=== PATIENT | female | born 1980 | race Caucasian/White ===

== ENCOUNTER → 2017-05-19 | Day surgery (SDC) | payer OTHER ==
[2017-04-26 08:25] VITALS: Ht 162.6 cm; Wt 58.2 kg
[~2017-05-19] VITALS: Ht 162.6 cm; Wt 58.2 kg
[~2017-05-19] MED LIST: ALBU18002 INH; ATROPINE SULFATE 0.1 MG/ML 5ML SYR IV PRN; CABE0.5T PO; CYCL5TAB PO; CYM/30 PO; DICY10CA12 PO; EpHEDrine SULFATE INJ 50 MG/ML AMP IV PRN; HYDR-4380 PO; LIDOCAINE HCL 2% 2 ML VIAL (20MG/ML) ONE; LORA-741 PO; MIDAZOLAM HCL 1 MG/ML 2ML VIAL ONE; ONDA4TAB54 SL; ONDANSETRON INJ 2 MG/ML 2 ML VIAL ONE; PANT40TA PO; PROPOFOL IV EMULSION 10 MG/ML 20 ML VIAL IV ONE
[2017-05-19 12:54] VITALS: TEMP 36.9
--- NOTE | 2017-05-19 13:06 | Endo History and Physical ---
History & Physical Date of Service: May 19, 2017. Chief Complaint: ABD pain, Alternating Constipation and Diarrhea Referring Physician: Scooby History of Present Illness 37 yo CF who presents for Colonoscopy secondary to abdominal pain and change in bowel habits. Past Surgical History Hx Cardiac Surgery: No Hx Internal Defibrillator: No Hx Pacemaker: No Hx Abdominal Surgery: Yes (TUBAL LIGATION, UTERINE ABLATION, BLT INGUINAL HERNIA REPAIR) Hx of Implantable Prosthesis: No Hx Post-Op Nausea and Vomiting: No Hx Cancer Surgery: No Hx Thoracic Surgery: No Hx Orthopedic: No Hx Urinary Tract Surgery: No Family History Polyp, IBD Social History Smoking Status: Current Every Day Smoker Hx Substance Use: No Hx Alcohol Use: Yes (OCCASIONAL) Allergies Coded Allergies: Latex (Verified Allergy, Unknown, HIVES, RASH, AND SWELLING, 05/12/17) NO KNOWN DRUG ALLERGIES (Verified Allergy, Unknown, ., 05/12/17) Current Medications Reported Home Medications Medications Dose Route/Sig Max Daily Dose Days Date Category Dose Instructions Hydrocodone/Acetaminophen (Hydrocodone-Acetaminophen) 1 Tab Tab 1 Tab PO Q4H PRN 05/12/17 Reported Protonix (Pantoprazole Sodium) 40 Mg Tab 40 Mg PO QAM 05/12/17 Reported Proair Respiclick (Albuterol Sulfate) 108 Mcg/Act Aer 2 Puffs INH Q4H PRN 04/26/17 Reported Ondansetron HCl (Ondansetron) 4 Mg Tab 1 Tab SL BID PRN 04/26/17 Reported Ativan (Lorazepam) 0.5 Mg Tab 0.5 Mg PO TID PRN 04/26/17 Reported Dicyclomine Hcl 10 Mg Cap 1 Cap PO TID PRN 04/26/17 Reported Cymbalta (Duloxetine HCl) 30 Mg Cap 1 Cap PO HS 04/26/17 Reported Flexeril (Cyclobenzaprine Hcl) 5 Mg Tab 5 Mg PO TID PRN 04/26/17 Reported PRN Cabergoline 0.5 Mg Tab 1 Tab PO WK 04/26/17 Reported WED Vital Signs Weight (Kilograms): 58.18 Height (Feet): 5 Height (Inches): 4 Date Time Temp Pulse Resp B/P (MAP) Pulse Ox O2 Delivery O2 Flow Rate FiO2 05/19/17 12:54 36.9 65 18 117/80 (92) 99 Room Air Physical Exam General Appearance: WD/WN, no apparent distress Respiratory/Chest: Auscultation: breath sounds normal Cardiovascular: Heart Auscultation: RRR Abdomen: Bowel Sounds: normal Inspection & Palpation: soft, non-distended, no tenderness, guarding & rebound Assessment and Plan Assessment: 37 yo CF who presents for Colonoscopy secondary to abdominal pain and change in bowel habits. Plan: Proceed with colonoscopy.
--- NOTE | 2017-05-19 13:43 | Discharge Instructions ---
Endoscopy Patient Instructions Date / Procedure(s) Performed May 19, 2017. Colonoscopy Allergy Information Coded Allergies: Latex (Verified Allergy, Unknown, HIVES, RASH, AND SWELLING, 05/12/17) NO KNOWN DRUG ALLERGIES (Verified Allergy, Unknown, ., 05/12/17) Discharge Date / Findings May 19, 2017. Colon polyps Internal hemorrhoids Medication Instructions OK to resume all medications today as prescribed Reported Home Medications Medications Dose Route/Sig Max Daily Dose Days Date Category Dose Instructions Hydrocodone/Acetaminophen (Hydrocodone-Acetaminophen) 1 Tab Tab 1 Tab PO Q4H PRN 05/12/17 Reported Protonix (Pantoprazole Sodium) 40 Mg Tab 40 Mg PO QAM 05/12/17 Reported Proair Respiclick (Albuterol Sulfate) 108 Mcg/Act Aer 2 Puffs INH Q4H PRN 04/26/17 Reported Ondansetron HCl (Ondansetron) 4 Mg Tab 1 Tab SL BID PRN 04/26/17 Reported Ativan (Lorazepam) 0.5 Mg Tab 0.5 Mg PO TID PRN 04/26/17 Reported Dicyclomine Hcl 10 Mg Cap 1 Cap PO TID PRN 04/26/17 Reported Cymbalta (Duloxetine HCl) 30 Mg Cap 1 Cap PO HS 04/26/17 Reported Flexeril (Cyclobenzaprine Hcl) 5 Mg Tab 5 Mg PO TID PRN 04/26/17 Reported PRN Cabergoline 0.5 Mg Tab 1 Tab PO WK 04/26/17 Reported WED Provider Instructions Activity Restrictions - No exercising or heavy lifting for 24 hours. - Do not drink alcohol the day of the procedure. - Do not drive a car or operate machinery until the day after the procedure. - Do not make any important decisions or sign important papers in 24 hours after the procedure. Following Day: - Return to full activity which may include returning to work/school. Diet Start your diet with liquids and light foods (jello, soup, juice, toast). Then eat your usual diet if not nauseated. Treatment For Common After Affects For mild abdominal pain, bloating, or excessive gas: - Rest - Eat lightly - Lie on right side Follow-Up Information Follow-up with Scooby as scheduled Anesthesia Information What You Should Know You have had a procedure that required some medicine to reduce anxiety and discomfort. This treatment is called moderate sedation. After receiving the treatment, you may be sleepy, but you will be able to breathe on your own. The effects of the treatment may last for several hours. Follow these instructions along with Activity/Diet recommendations noted above: * Do NOT do anything where dizziness or clumsiness would be dangerous. * Rest quietly at home today, then you can be up and about tomorrow. * Have a responsible person stay with you the rest of today. * You may have had an I.V. today. If so, you may take the dressing off later today. Recommendations Call your doctor if: * Trouble breathing * Continuous vomiting for more than 24 hours * Temperature above 101 degrees * Severe abdominal pain or bloating * Pain not relieved by pain medicine ordered * There is increased drainage or redness from any incision * A large amount of rectal bleeding greater than 2-3 tablespoons. (If you had a polyp/s removed or have hemorrhoids, a small amount of blood - from the rectum is to be expected.) * You have any unanswered questions or concerns. IN THE EVENT OF A SERIOUS EMERGENCY, GO TO THE NEAREST EMERGENCY ROOM Your discharge instructions were prepared by provider Jun Torres. Patient Instructions Signature Page Hannah Davis Patient (or Guardian) Signature/Date: I have read and understand the instructions given to me by my caregivers. Caregiver/RN/Doctor Signature/Date: The above-named patient and/or guardian has received patient instructions on this date. + Original Patient Signature Page (only) stays with chart. Please make copy for patient.
--- NOTE | 2017-05-19 13:45 | Anesthesiology Progress Note ---
Anesthesia Post Op Note Date & Time May 19, 2017 at 13:44 Vital Signs Pain Intensity: 4 Vital Signs Past 12 Hours Date Time Temp Pulse Resp B/P (MAP) Pulse Ox O2 Delivery O2 Flow Rate FiO2 05/19/17 12:54 36.9 65 18 117/80 (92) 99 Room Air Notes Mental Status: alert / awake / arousable, participated in evaluation Pt Amnestic to Procedure: Yes Nausea / Vomiting: adequately controlled Pain: adequately controlled Airway Patency, RR, SpO2: stable & adequate BP & HR: stable & adequate Hydration State: stable & adequate Anesthetic Complications: no major complications apparent
[2017-05-19 14:11] VITALS: BP 130/80; PULSE 58; O2SAT 100
--- NOTE | 2017-05-20 00:24 | GI REPORT ---
Procedure Date: 05/19/2017 12:53 PM Procedure: Colonoscopy Indications: Generalized abdominal pain, Change in bowel habits Medicines: Monitored Anesthesia Care Complications: No immediate complications. Estimated Blood Loss: Estimated blood loss: none. Procedure: Pre-Anesthesia Assessment: - Prior to the procedure, a History and Physical was performed, and patient medications and allergies were reviewed. The patient's tolerance of previous anesthesia was also reviewed. The risks and benefits of the procedure and the sedation options and risks were discussed with the patient. All questions were answered, and informed consent was obtained. Prior Anticoagulants: The patient has taken no previous anticoagulant or antiplatelet agents. ASA Grade Assessment: II - A patient with mild systemic disease. After reviewing the risks and benefits, the patient was deemed in satisfactory condition to undergo the procedure. After I obtained informed consent, the scope was passed under direct vision. Throughout the procedure, the patient's blood pressure, pulse, and oxygen saturations were monitored continuously. The scope was introduced through the anus and advanced to the terminal ileum. The colonoscopy was performed without difficulty. The patient tolerated the procedure well. The quality of the bowel preparation was good. The terminal ileum, ileocecal valve, appendiceal orifice, and rectum were photographed. Findings: A 3 mm polyp was found in the ascending colon. The polyp was sessile. The polyp was removed with a cold snare. Resection and retrieval were complete. A 15 mm polyp was found in the ascending colon. The polyp was flat. The polyp was removed with a saline injection-lift technique using a hot snare. Resection and retrieval were complete. A 4 mm polyp was found in the sigmoid colon. The polyp was sessile. The polyp was removed with a cold snare. Resection was complete, but the polyp tissue was not retrieved. Non-bleeding internal hemorrhoids were found during retroflexion. The hemorrhoids were small. Impression: - One 3 mm polyp in the ascending colon, removed with a cold snare. Resected and retrieved. - One 15 mm polyp in the ascending colon, removed using injection-lift and a hot snare. Resected and retrieved. - One 4 mm polyp in the sigmoid colon, removed with a cold snare. Complete resection. Polyp tissue not retrieved. - Non-bleeding internal hemorrhoids. Recommendation: - Resume previous diet. - Continue present medications. - Repeat colonoscopy for surveillance based on pathology results. - Return to primary care physician as previously scheduled. Jun Torres DO 05/19/2017 1:46:58 PM This report has been signed electronically. Note Initiated On: 05/19/2017 12:53 PM I attest to the content of the Intraoperative Record and orders documented therein, exceptions below
== END | disposition home or self-care (01) ==
LOC: C.GI 12:24
PROVIDERS: ATTEND Internal Medicine
DX: D12.2 Benign neoplasm of ascending colon (principal); K63.5 Polyp of colon; R10.84 Generalized abdominal pain; R19.4 Change in bowel habit; K64.8 Other hemorrhoids

== ENCOUNTER → 2017-06-01 | Day surgery (SDC) | payer OTHER ==
[2017-05-12 07:39] VITALS: Ht 162.6 cm; Wt 59.5 kg
[~2017-06-01] VITALS: Ht 162.6 cm; Wt 59.5 kg
[~2017-06-01] MED LIST changes: +500ML BSS 0.3ML EPI 1:1000PF IRRIG ONE; +ACETAMINOPHEN 325 MG TAB PO PRN; +AMVISC PLUS 0.8ML SYRINGE INT OCU ONE; +BSS FLUSH ONE; +ENDOCOAT 0.85ML SYRINGE INT OCU ONE; +EpINEphrine INJ 1MG/ML AMP 1 MG/ML AMP ONE; +FENTANYL CITRATE INJ 50 MCG/1 ML 2 ML VIAL ONE; +LIDOCAINE 4% OP SOLN DROP CHARGE ONE; +LIDOCAINE 4% OP SOLN DROP CHARGE OPR SCH; +LIDOCAINE HCL 1% MPF 2 ML VIAL ONE; +MIX: 4ML BSS 1ML EPI 1:1000 PF TOP ONE; +MOXIFLOXACIN OPH SOLN PER DROP CHARGE ONE; +ONDANSETRON INJ 2 MG/ML 2 ML VIAL IV PRN; +POVIDONE-IODINE OP SOLN 30 ML BTL ONE; +PROMETHAZINE HCL INJ 12.5 MG in SODIUM CHLORIDE 0.9% 50ML 50 ML IV PRN; +PROPARACAINE 0.5% OP SOLN PER DROP CHARGE OPR SCH; +TOBRAMYCIN/DEXAMETHASONE OPH OINT PER APPLN CHARGE ONE
[2017-06-01] MEDS: PHENYLEPHRINE HCL 2.5% OP SOLN PER DROP CHARGE OPR SCH ×3 (11:27→11:38)
[2017-06-01] MEDS: TROPICAMIDE 1% OP SOLN PER DROP CHARGE OPR SCH ×3 (11:28→11:39)
[2017-06-01] MEDS: CYCLOPENTOLATE HCL 1% OP SOLN PER DROP CHARGE OPR SCH ×3 (11:29→11:40)
[2017-06-01] MEDS: MOXIFLOXACIN OPH SOLN PER DROP CHARGE OPR SCH ×3 (11:30→11:41)
--- NOTE | 2017-06-01 11:35 | History & Physical Bridge - SC ---
H&P Re-Evaluation Bridge Note: I have examined the patient, reviewed the History & Physical and in the interval since the performance of the History & Physical I have noted the following changes of clinical significance: No changes noted
[2017-06-01] MEDS: LACTATED RINGER'S 1000ML 500 ML IV SCH ×2 (11:46→13:26)
--- NOTE | 2017-06-01 12:52 | [facility] Post Operative Brief Note ---
Immediate Operative Summary Operative Date Jun 01, 2017. Pre-Operative Diagnosis Right eye cataract Post-Operative Diagnosis Same as preop Procedure(s) Performed Right Cataract Phacoemulsification with Intraocular Lens Implant Surgeon Dr. Escalante Plastics Fabricator Or Welder Surgeon(s) None Estimated Blood Loss 0 mL Findings right cataract Specimens None Complication(s) None Disposition Recovery Room / PACU
--- NOTE | 2017-06-01 12:54 | [facility] Operative Report ---
Operative Report Date of Service Jun 01, 2017. Operative Report DATE OF OPERATION: 06/01/17 PREOPERATIVE DIAGNOSIS: Senile nuclear and posterior subcapsular cataract, right eye POSTOPERATIVE DIAGNOSIS: Senile nuclear and posterior subcapsular cataract, right eye PROCEDURE PERFORMED: Phacoemulsification with intraocular lens implantation, right eye SURGEON: Dr. Cas Escalante ANESTHESIA: Topical with 1% intracameral lidocaine and monitored anesthesia care COMPLICATIONS: None DESCRIPTION OF PROCEDURE: After positively identifying the patient both verbally and by wristband in the preoperative area, the right eye was marked as the operative eye. The patient was then brought back to the operating room by the anesthesia and nursing staff where they were given a drop of Lidocaine and betadine into the operative eye. They were then sterilely prepped and draped in the standard fashion typical for ophthalmic surgery. Steri-strips were placed along the upper eyelids to keep the lashes back, and a lid speculum was placed into the operative eye. At this point, a documented time out was performed with members of the ophthalmology, nursing, and anesthesia staffs all agreeing upon the correct patient, correct location for surgery, correct procedure, and correct type and power of intraocular lens to be implanted. The microscope was then swung into position. First, a paracentesis wound was made using a sideport blade. Then, in sequence, 1% preservative-free lidocaine followed by Endocoat viscoelastic was injected into the anterior chamber. Next , the main incision was made with a keratome blade in triplanar fashion. A sharp cystotome was introduced into the eye and used to create a tear in the anterior capsule, which was directed into a continuous curvilinear capsulorrhexis using Utrata forceps. Hydrodissection was then performed with BSS on a flat-tip cannula. Next, the irrigation-aspiration handpiece was introduced into the eye and used to remove the nucleus and all remaining cortical and epinuclear material. Amvisc was then injected into the anterior chamber as well as into the capsular bag and using the lens injector system, an MX60 19.0 D lens, serial number [id number], and expiration date 01/2020 was injected into the capsular bag and rotated into the correct position. Next, the irrigation-aspiration handpiece was used to remove all remaining Amvisc. BSS was used to hydrate the main wound, and then BSS was injected into the paracentesis site to reach physiologic pressure and then the main wound was checked and found to be watertight. The patient was given drops of Vigamox and Tobradex ointment into the operative eye, and then the surrounding area was cleaned and dried. A clear plastic shield was placed over the eye and the patient was then sat up and taken from the operating room by the anesthesia staff having tolerated the procedure well and suffering no complications. DISPOSITION: The patient was returned to the recovery room in stable condition. I attest to the content of the Intraoperative Record and any orders documented therein. Any exceptions are noted below.
--- NOTE | 2017-06-01 12:55 | Discharge Instructions-SurgCtr ---
Discharge Instructions Date of Service Jun 01, 2017. Visit Reason for Visit: Right Cataract Discharge Discharge Diagnosis / Problem: right cataract Discharge Goals Goal(s): Decrease discomfort, Improve function Activity Recommendations Activity Limitations: as noted below Anesthesia . Post Anesthesia Instructions: If you have had General Anesthesia or IV Sedation: * Do not drive today. * Resume driving when surgeon permits. * Do not make important decisions or sign legal documents today. * Call surgeon for: 1. Temperature elevations greater than 101 degrees F. 2. Uncontrollable pain. 3. Excessive bleeding. 4. Persistent nausea and vomiting. 5. Medication intolerance (nausea, vomiting or rash). * For nausea and vomiting use only clear liquids such as: tea, soda, bouillon until nausea subsides, then gradually increase diet as tolerated. * If you have any concerns or questions, call your surgeon's office. If physician is unavailable and it is an emergency, call 911 or go to the nearest emergency room. . Instructions / Follow-Up Instructions / Follow-Up ACTIVITY RECOMMENDATIONS: * Light activities. * You may walk outside, read, watch television. * You may notice redness on the white part of the eye and some blurry vision - this is normal. MEDICATIONS: Resume previous medications unless instructed otherwise by your surgeon. Start all eye drops at 3 pm today: * Eye drops (today): Prednisone - one drop in operative eye every 2 hours while awake Ofloxacin - one drop in operative eye every 2 hours while awake Bromfenac - one drop in operative eye daily SPECIAL CARE INSTRUCTIONS: * Tape plastic shield over eye to sleep at night. Call your doctor at with any concerns or problems. FOLLOW UP VISIT: Follow-up with Dr Escalante at [facility] as scheduled. Diet Recommendations Home Diet: no limitations Procedures Procedures Performed: Right Cataract Phacoemulsification with Intraocular Lens Implant Pending Studies Studies pending at discharge: no Medical Emergencies . Who to Call and When: Medical Emergencies: If at any time you feel your situation is an emergency, please call 911 immediately. . Non-Emergent Contact Non-Emergency issues call your: Surgeon . . "Provider Documentation" section prepared by Cas Escalante. .
[2017-06-01 13:57] VITALS: BP 128/83; PULSE 63; O2SAT 100
--- NOTE | 2017-06-01 13:57 | Anesthesia Progress Nt - [facility] ---
Anesthesia Post Op Note Date & Time Jun 01, 2017 at 13:57 Vital Signs Pain Intensity: 0 Vital Signs Past 12 Hours Date Time Temp Pulse Resp B/P (MAP) Pulse Ox O2 Delivery O2 Flow Rate FiO2 06/01/17 13:34 36.5 69 16 118/79 (92) 100 Room Air 06/01/17 13:31 63 17 123/80 (88) 100 06/01/17 13:31 62 17 06/01/17 13:26 66 13 06/01/17 13:26 67 13 106/74 (76) 100 06/01/17 13:25 Room Air 06/01/17 13:21 63 16 06/01/17 13:21 66 16 137/75 (81) 100 06/01/17 13:16 68 19 06/01/17 13:16 64 19 114/81 (84) 100 06/01/17 13:12 120/73 (78) 06/01/17 13:11 75 23 06/01/17 13:11 75 23 100 06/01/17 13:06 66 15 108/76 (83) 100 06/01/17 13:06 68 15 06/01/17 13:01 70 13 125/68 (74) 100 06/01/17 13:01 70 13 06/01/17 12:56 76 06/01/17 12:56 76 104/74 (85) 100 06/01/17 12:55 98/66 (72) 06/01/17 12:51 36.6 73 16 98/66 98 Diffusion Mask 3 06/01/17 11:18 36.4 80 16 112/69 (83) 100 Room Air Notes Mental Status: alert / awake / arousable, participated in evaluation Pt Amnestic to Procedure: Yes Nausea / Vomiting: adequately controlled Pain: adequately controlled Airway Patency, RR, SpO2: stable & adequate BP & HR: stable & adequate Hydration State: stable & adequate Anesthetic Complications: no major complications apparent
== END | disposition home or self-care (01) ==
LOC: X.SURG 10:50
PROVIDERS: ATTEND Ophthalmology
DX: H25.11 Age-related nuclear cataract, right eye (principal); H25.041 Posterior subcapsular polar age-related cataract, right eye; I34.1 Nonrheumatic mitral (valve) prolapse; J45.909 Unspecified asthma, uncomplicated; F41.9 Anxiety disorder, unspecified; F32.9 Major depressive disorder, single episode, unspecified; F17.200 Nicotine dependence, unspecified, uncomplicated; Z79.899 Other long term (current) drug therapy

== ENCOUNTER → 2017-06-15 | Day surgery (SDC) | payer OTHER ==
[2017-06-14 08:25] VITALS: Ht 162.6 cm; Wt 59.5 kg
[~2017-06-15] VITALS: Ht 162.6 cm; Wt 59.5 kg
[~2017-06-15] MED LIST changes: +AcetylCHOLine CHL OP SOL 1:100 2 ML BTL ONE; +FLUMAZENIL 0.1 MG/1 ML 10 ML VIAL IV PRN; +LACTATED RINGER'S 1000ML 500 ML IV SCH; +LIDOCAINE 4% OP SOLN DROP CHARGE OPL SCH; -LIDOCAINE 4% OP SOLN DROP CHARGE OPR SCH; -LIDOCAINE HCL 2% 2 ML VIAL (20MG/ML) ONE; -MIDAZOLAM HCL 1 MG/ML 2ML VIAL ONE; +NALOXONE HCL 0.4 MG/1 ML VIAL/CARP IV PRN; +PROPARACAINE 0.5% OP SOLN PER DROP CHARGE OPL SCH; -PROPARACAINE 0.5% OP SOLN PER DROP CHARGE OPR SCH
[2017-06-15] MEDS: PHENYLEPHRINE HCL 2.5% OP SOLN PER DROP CHARGE OPL SCH ×3 (12:21→12:32)
[2017-06-15] MEDS: TROPICAMIDE 1% OP SOLN PER DROP CHARGE OPL SCH ×3 (12:22→12:33)
[2017-06-15] MEDS: CYCLOPENTOLATE HCL 1% OP SOLN PER DROP CHARGE OPL SCH ×3 (12:23→12:34)
[2017-06-15] MEDS: MOXIFLOXACIN OPH SOLN PER DROP CHARGE OPL SCH ×3 (12:24→12:35)
--- NOTE | 2017-06-15 13:59 | [facility] Post Operative Brief Note ---
Immediate Operative Summary Operative Date Jun 15, 2017. Pre-Operative Diagnosis Cataract left eye Post-Operative Diagnosis Same Procedure(s) Performed Left Cataract Phacoemulsification With Intraocular Lens Implant Surgeon Block Feeder Surgeon(s) None Estimated Blood Loss Zero Findings left cataract Specimens None Complication(s) None Disposition
--- NOTE | 2017-06-15 14:01 | [facility] Operative Report ---
Operative Report Date of Service Jun 15, 2017. Operative Report DATE OF OPERATION: 06/15/17 PREOPERATIVE DIAGNOSIS: Senile nuclear cataract, left eye POSTOPERATIVE DIAGNOSIS: Senile nuclear cataract, left eye PROCEDURE PERFORMED: Phacoemulsification with intraocular lens implantation, left eye SURGEON: Dr. Cas Escalante ANESTHESIA: LMA general COMPLICATIONS: None DESCRIPTION OF PROCEDURE: After positively identifying the patient both verbally and by wristband in the preoperative area, the left eye was marked as the operative eye. The patient was then brought back to the operating room by the anesthesia and nursing staff where LMA general anesthesia was induced. The patient was then given a drop of Lidocaine and betadine into the operative eye. They were then sterilely prepped and draped in the standard fashion typical for ophthalmic surgery. Steri-strips were placed along the upper eyelids to keep the lashes back, and a lid speculum was placed into the operative eye. At this point, a documented time out was performed with members of the ophthalmology, nursing, and anesthesia staffs all agreeing upon the correct patient, correct location for surgery, correct procedure, and correct type and power of intraocular lens to be implanted. The microscope was then swung into position. First, a paracentesis wound was made using a sideport blade. Then, in sequence, 1% preservative-free lidocaine followed by Endocoat viscoelastic was injected into the anterior chamber. Next , the main incision was made with a keratome blade in triplanar fashion. A sharp cystotome was introduced into the eye and used to create a tear in the anterior capsule, which was directed into a continuous curvilinear capsulorrhexis using Utrata forceps. Hydrodissection was then performed with BSS on a flat-tip cannula. Next, the irrigation-aspiration handpiece was introduced into the eye and used to remove the soft nucleus and all remaining possible and epinuclear material. Amvisc was then injected into the anterior chamber as well as into the capsular bag and using the lens injector system, an MX60 17.0 D lens, serial number [id number], and expiration date 12/2019 was injected into the capsular bag and rotated into the correct position. Next, the irrigation-aspiration handpiece was used to remove all remaining Amvisc. BSS was used to hydrate the main wound, and then BSS was injected into the paracentesis site to reach physiologic pressure and then the main wound was checked and found to be watertight. Miochol was injected. The patient was given drops of Vigamox and Tobradex ointment into the operative eye, and then the surrounding area was cleaned and dried. A clear plastic shield was placed over the eye and the patient was then sat up and taken from the operating room by the anesthesia staff having tolerated the procedure well and suffering no complications. DISPOSITION: The patient was returned to the recovery room in stable condition. I attest to the content of the Intraoperative Record and any orders documented therein. Any exceptions are noted below.
--- NOTE | 2017-06-15 14:03 | Discharge Instructions-SurgCtr ---
Discharge Instructions Date of Service Jun 15, 2017. Visit Reason for Visit: Left Cataract Discharge Discharge Diagnosis / Problem: left cataract Discharge Goals Goal(s): Decrease discomfort, Improve function Activity Recommendations Activity Limitations: as noted below Anesthesia . Post Anesthesia Instructions: If you have had General Anesthesia or IV Sedation: * Do not drive today. * Resume driving when surgeon permits. * Do not make important decisions or sign legal documents today. * Call surgeon for: 1. Temperature elevations greater than 101 degrees F. 2. Uncontrollable pain. 3. Excessive bleeding. 4. Persistent nausea and vomiting. 5. Medication intolerance (nausea, vomiting or rash). * For nausea and vomiting use only clear liquids such as: tea, soda, bouillon until nausea subsides, then gradually increase diet as tolerated. * If you have any concerns or questions, call your surgeon's office. If physician is unavailable and it is an emergency, call 911 or go to the nearest emergency room. . Instructions / Follow-Up Instructions / Follow-Up ACTIVITY RECOMMENDATIONS: * Light activities. * You may walk outside, read, watch television. * You may notice redness on the white part of the eye and some blurry vision - this is normal. MEDICATIONS: Resume previous medications unless instructed otherwise by your surgeon. Start all eye drops at 4 pm today: * Eye drops (today): Prednisone - one drop in operative eye every 2 hours while awake Ofloxacin - one drop in operative eye every 2 hours while awake Bromfenac - one drop in operative eye daily SPECIAL CARE INSTRUCTIONS: * Tape plastic shield over eye to sleep at night. Call your doctor at with any concerns or problems. FOLLOW UP VISIT: Follow-up with Dr Escalante at [place] office as scheduled. Diet Recommendations Home Diet: no limitations Procedures Procedures Performed: Left Cataract Phacoemulsification With Intraocular Lens Implant Pending Studies Studies pending at discharge: no Medical Emergencies . Who to Call and When: Medical Emergencies: If at any time you feel your situation is an emergency, please call 911 immediately. . Non-Emergent Contact Non-Emergency issues call your: Surgeon . . "Provider Documentation" section prepared by Cas Escalante. .
--- NOTE | 2017-06-15 14:58 | Anesthesia Progress Nt - [facility] ---
Anesthesia Post Op Note Date & Time Jun 15, 2017 at 14:57 Vital Signs Pain Intensity: 0 Vital Signs Past 12 Hours Date Time Temp Pulse Resp B/P (MAP) Pulse Ox O2 Delivery O2 Flow Rate FiO2 06/15/17 14:41 36.5 06/15/17 14:37 66 16 132/82 99 Room Air 06/15/17 14:01 36.3 68 18 134/89 100 Nasal Cannula 3 06/15/17 12:17 36.7 83 16 125/76 (92) 100 Room Air Notes Mental Status: alert / awake / arousable, participated in evaluation Pt Amnestic to Procedure: Yes Nausea / Vomiting: adequately controlled Pain: adequately controlled Airway Patency, RR, SpO2: stable & adequate BP & HR: stable & adequate Hydration State: stable & adequate Anesthetic Complications: no major complications apparent
[2017-06-15 15:09] VITALS: BP 121/88; PULSE 73; O2SAT 99
== END | disposition home or self-care (01) ==
LOC: X.SURG 12:02
PROVIDERS: ATTEND Ophthalmology
DX: H25.12 Age-related nuclear cataract, left eye (principal); F32.9 Major depressive disorder, single episode, unspecified; F41.9 Anxiety disorder, unspecified; J45.909 Unspecified asthma, uncomplicated; Z98.51 Tubal ligation status; F17.200 Nicotine dependence, unspecified, uncomplicated; Z98.41 Cataract extraction status, right eye; Z91.040 Latex allergy status; Z79.899 Other long term (current) drug therapy; Z98.890 Other specified postprocedural states

== ENCOUNTER → 2017-08-26 | Day surgery (SDC) | payer OTHER ==
[2017-08-18 11:42] VITALS: Ht 160 cm; Wt 59.5 kg
[~2017-08-26] VITALS: Ht 160 cm; Wt 59.5 kg
[~2017-08-26] MED LIST changes: -500ML BSS 0.3ML EPI 1:1000PF IRRIG ONE; -ACETAMINOPHEN 325 MG TAB PO PRN; -AMVISC PLUS 0.8ML SYRINGE INT OCU ONE; -ATROPINE SULFATE 0.1 MG/ML 5ML SYR IV PRN; -AcetylCHOLine CHL OP SOL 1:100 2 ML BTL ONE; -BSS FLUSH ONE; -ENDOCOAT 0.85ML SYRINGE INT OCU ONE; -EpHEDrine SULFATE INJ 50 MG/ML AMP IV PRN; -EpINEphrine INJ 1MG/ML AMP 1 MG/ML AMP ONE; -FENTANYL CITRATE INJ 50 MCG/1 ML 2 ML VIAL ONE; -FLUMAZENIL 0.1 MG/1 ML 10 ML VIAL IV PRN; -LACTATED RINGER'S 1000ML 500 ML IV SCH; -LIDOCAINE 4% OP SOLN DROP CHARGE ONE; -LIDOCAINE 4% OP SOLN DROP CHARGE OPL SCH; -LIDOCAINE HCL 1% MPF 2 ML VIAL ONE; +LIDOCAINE HCL 2% 2 ML VIAL (20MG/ML) ONE; +MIDAZOLAM HCL 1 MG/ML 2ML VIAL ONE; -MIX: 4ML BSS 1ML EPI 1:1000 PF TOP ONE; -MOXIFLOXACIN OPH SOLN PER DROP CHARGE ONE; -NALOXONE HCL 0.4 MG/1 ML VIAL/CARP IV PRN; -ONDANSETRON INJ 2 MG/ML 2 ML VIAL IV PRN; -POVIDONE-IODINE OP SOLN 30 ML BTL ONE; -PROMETHAZINE HCL INJ 12.5 MG in SODIUM CHLORIDE 0.9% 50ML 50 ML IV PRN; -PROPARACAINE 0.5% OP SOLN PER DROP CHARGE OPL SCH; +SODIUM CHLORIDE 0.9% 500ML 500 ML IV ONE; -TOBRAMYCIN/DEXAMETHASONE OPH OINT PER APPLN CHARGE ONE
[2017-08-26 10:53] VITALS: TEMP 36.8
--- NOTE | 2017-08-26 12:19 | Endo History and Physical ---
History & Physical Date of Service: Aug 26, 2017. Chief Complaint: ESOPHAGITIS, DIFFICULTY SWALLOWING Referring Physician: DR. MARLA PRICE History of Present Illness 37 yo CF who presents for EGD secondary to esophagitis and dysphagia. Past Surgical History Hx Cardiac Surgery: No Hx Internal Defibrillator: No Hx Pacemaker: No Hx Abdominal Surgery: Yes (TUBAL LIGATION, UTERINE ABLATION, BLT INGUINAL HERNIA REPAIR) Hx of Implantable Prosthesis: No Hx Post-Op Nausea and Vomiting: No Hx Cancer Surgery: No Hx Thoracic Surgery: No Hx Orthopedic: No Hx Urinary Tract Surgery: No Family History Polyp, IBD Social History Smoking Status: Current Every Day Smoker Hx Substance Use: Yes (SEE MED LIST) Hx Alcohol Use: Yes (OCCASIONAL) Allergies Coded Allergies: Latex1 -Allergic Contact Dermititis (Verified Allergy, Unknown, RASH, HIVES, SWELLING, 08/18/17) NO KNOWN DRUG ALLERGIES (Verified Allergy, Unknown, ., 08/18/17) Current Medications Reported Home Medications Medications Dose Route/Sig Max Daily Dose Days Date Category Dose Instructions Hydrocodone/Acetaminophen (Hydrocodone-Acetaminophen) 1 Tab Tab 1 Tab PO Q4H PRN 05/12/17 Reported Protonix (Pantoprazole Sodium) 40 Mg Tab 40 Mg PO QAM 05/12/17 Reported Proair Respiclick (Albuterol Sulfate) 108 Mcg/Act Aer 2 Puffs INH Q4H PRN 04/26/17 Reported Ondansetron HCl (Ondansetron) 4 Mg Tab 1 Tab SL BID PRN 04/26/17 Reported Ativan (Lorazepam) 0.5 Mg Tab 0.5 Mg PO TID PRN 04/26/17 Reported Dicyclomine Hcl 10 Mg Cap 1 Cap PO TID PRN 04/26/17 Reported Cymbalta (Duloxetine HCl) 30 Mg Cap 30 Mg PO HS 04/26/17 Reported Flexeril (Cyclobenzaprine Hcl) 5 Mg Tab 5 Mg PO TID PRN 04/26/17 Reported PRN Cabergoline 0.5 Mg Tab 1 Tab PO WK 04/26/17 Reported WED Vital Signs Weight (Kilograms): 59.55 Height (Feet): 5 Height (Inches): 3 Date Time Temp Pulse Resp B/P (MAP) Pulse Ox O2 Delivery O2 Flow Rate FiO2 08/26/17 10:53 36.8 74 20 108/78 (88) 100 Room Air Physical Exam General Appearance: WD/WN, no apparent distress Respiratory/Chest: Auscultation: breath sounds normal Cardiovascular: Heart Auscultation: RRR Abdomen: Bowel Sounds: normal Inspection & Palpation: soft, non-distended, no tenderness, guarding & rebound Assessment and Plan Assessment: 37 yo CF who presents for EGD secondary to esophagitis and dysphagia. Plan: Proceed with colonoscopy.
--- NOTE | 2017-08-26 13:19 | GI REPORT ---
Procedure Date: 08/26/2017 1:00 PM Procedure: Upper GI endoscopy Indications: Dysphagia Medicines: Monitored Anesthesia Care Complications: No immediate complications. Estimated Blood Loss: Estimated blood loss: none. Procedure: Pre-Anesthesia Assessment: - Prior to the procedure, a History and Physical was performed, and patient medications and allergies were reviewed. The patient's tolerance of previous anesthesia was also reviewed. The risks and benefits of the procedure and the sedation options and risks were discussed with the patient. All questions were answered, and informed consent was obtained. Prior Anticoagulants: The patient has taken no previous anticoagulant or antiplatelet agents. ASA Grade Assessment: II - A patient with mild systemic disease. After reviewing the risks and benefits, the patient was deemed in satisfactory condition to undergo the procedure. After obtaining informed consent, the endoscope was passed under direct vision. Throughout the procedure, the patient's blood pressure, pulse, and oxygen saturations were monitored continuously. The scope was introduced through the mouth, and advanced to the second part of duodenum. The upper GI endoscopy was accomplished without difficulty. The patient tolerated the procedure well. Findings: No endoscopic abnormality was evident in the esophagus to explain the patient's complaint of dysphagia. Biopsies were taken with a cold forceps for histology. The stomach was normal. The examined duodenum was normal. Impression: - No endoscopic esophageal abnormality to explain patient's dysphagia. Biopsied. - Normal stomach. - Normal examined duodenum. Recommendation: - Resume previous diet. - Continue present medications. - Await pathology results. - Return to primary care physician as previously scheduled. Jun Torres DO 08/26/2017 1:19:29 PM This report has been signed electronically. Note Initiated On: 08/26/2017 1:00 PM I attest to the content of the Intraoperative Record and orders documented therein, exceptions below
--- NOTE | 2017-08-26 13:21 | Discharge Instructions ---
Endoscopy Patient Instructions Date / Procedure(s) Performed Aug 26, 2017. EGD Allergy Information Coded Allergies: Latex1 -Allergic Contact Dermititis (Verified Allergy, Unknown, RASH, HIVES, SWELLING, 08/18/17) NO KNOWN DRUG ALLERGIES (Verified Allergy, Unknown, ., 08/18/17) Discharge Date / Findings Aug 26, 2017. Mid-esophageal biopsies Medication Instructions OK to resume all medications today as prescribed Reported Home Medications Medications Dose Route/Sig Max Daily Dose Days Date Category Dose Instructions Hydrocodone/Acetaminophen (Hydrocodone-Acetaminophen) 1 Tab Tab 1 Tab PO Q4H PRN 05/12/17 Reported Protonix (Pantoprazole Sodium) 40 Mg Tab 40 Mg PO QAM 05/12/17 Reported Proair Respiclick (Albuterol Sulfate) 108 Mcg/Act Aer 2 Puffs INH Q4H PRN 04/26/17 Reported Ondansetron HCl (Ondansetron) 4 Mg Tab 1 Tab SL BID PRN 04/26/17 Reported Ativan (Lorazepam) 0.5 Mg Tab 0.5 Mg PO TID PRN 04/26/17 Reported Dicyclomine Hcl 10 Mg Cap 1 Cap PO TID PRN 04/26/17 Reported Cymbalta (Duloxetine HCl) 30 Mg Cap 30 Mg PO HS 04/26/17 Reported Flexeril (Cyclobenzaprine Hcl) 5 Mg Tab 5 Mg PO TID PRN 04/26/17 Reported PRN Cabergoline 0.5 Mg Tab 1 Tab PO WK 04/26/17 Reported WED Provider Instructions Activity Restrictions - No exercising or heavy lifting for 24 hours. - Do not drink alcohol the day of the procedure. - Do not drive a car or operate machinery until the day after the procedure. - Do not make any important decisions or sign important papers in 24 hours after the procedure. Following Day: - Return to full activity which may include returning to work/school. Diet Start your diet with liquids and light foods (jello, soup, juice, toast). Then eat your usual diet if not nauseated. Treatment For Common After Affects For mild abdominal pain, bloating, or excessive gas: - Rest - Eat lightly - Lie on right side Follow-Up Information Follow-up with DR. MARLA PRICE as scheduled Anesthesia Information What You Should Know You have had a procedure that required some medicine to reduce anxiety and discomfort. This treatment is called moderate sedation. After receiving the treatment, you may be sleepy, but you will be able to breathe on your own. The effects of the treatment may last for several hours. Follow these instructions along with Activity/Diet recommendations noted above: * Do NOT do anything where dizziness or clumsiness would be dangerous. * Rest quietly at home today, then you can be up and about tomorrow. * Have a responsible person stay with you the rest of today. * You may have had an I.V. today. If so, you may take the dressing off later today. Recommendations Call your doctor if: * Trouble breathing * Continuous vomiting for more than 24 hours * Temperature above 101 degrees * Severe abdominal pain or bloating * Pain not relieved by pain medicine ordered * There is increased drainage or redness from any incision * A large amount of rectal bleeding greater than 2-3 tablespoons. (If you had a polyp/s removed or have hemorrhoids, a small amount of blood - from the rectum is to be expected.) * You have any unanswered questions or concerns. IN THE EVENT OF A SERIOUS EMERGENCY, GO TO THE NEAREST EMERGENCY ROOM Your discharge instructions were prepared by provider Jun Torres. Patient Instructions Signature Page Hannah Davis Patient (or Guardian) Signature/Date: I have read and understand the instructions given to me by my caregivers. Caregiver/RN/Doctor Signature/Date: The above-named patient and/or guardian has received patient instructions on this date. + Original Patient Signature Page (only) stays with chart. Please make copy for patient.
[2017-08-26 13:35] VITALS: BP 134/86; PULSE 65; O2SAT 96
--- NOTE | 2017-08-26 13:47 | Anesthesiology Progress Note ---
Anesthesia Post Op Note Date & Time Aug 26, 2017 at 13:47 Vital Signs Pain Intensity: 0 Vital Signs Past 12 Hours Date Time Temp Pulse Resp B/P (MAP) Pulse Ox O2 Delivery O2 Flow Rate FiO2 08/26/17 13:35 65 18 134/86 (102) 96 Room Air 08/26/17 13:20 72 16 102/68 (79) 99 Room Air 08/26/17 10:53 36.8 74 20 108/78 (88) 100 Room Air Notes Mental Status: alert / awake / arousable, participated in evaluation Pt Amnestic to Procedure: Yes Nausea / Vomiting: adequately controlled Pain: adequately controlled Airway Patency, RR, SpO2: stable & adequate BP & HR: stable & adequate Hydration State: stable & adequate Anesthetic Complications: no major complications apparent
== END | disposition home or self-care (01) ==
LOC: C.GI 10:35
PROVIDERS: ATTEND Internal Medicine
DX: K20.9 Esophagitis, unspecified (principal); R13.10 Dysphagia, unspecified; F17.200 Nicotine dependence, unspecified, uncomplicated; Z91.040 Latex allergy status; Z98.51 Tubal ligation status; F41.9 Anxiety disorder, unspecified; M19.90 Unspecified osteoarthritis, unspecified site; Z98.890 Other specified postprocedural states; Z79.899 Other long term (current) drug therapy; Z98.41 Cataract extraction status, right eye; Z98.42 Cataract extraction status, left eye; Z83.71 Family history of colonic polyps

== ENCOUNTER → 2017-09-08 | Outpatient (CLI) | payer OTHER ==
[~2017-09-08] MED LIST changes: -LIDOCAINE HCL 2% 2 ML VIAL (20MG/ML) ONE; -MIDAZOLAM HCL 1 MG/ML 2ML VIAL ONE; -ONDANSETRON INJ 2 MG/ML 2 ML VIAL ONE; -PROPOFOL IV EMULSION 10 MG/ML 20 ML VIAL IV ONE; -SODIUM CHLORIDE 0.9% 500ML 500 ML IV ONE
== END | disposition home or self-care (01) ==
LOC: C.PATH 09:00
PROVIDERS: ATTEND Dentist Oral and Maxillofacial Pathology
DX: R59.0 Localized enlarged lymph nodes (principal)

== ENCOUNTER → 2017-09-22 | Outpatient (CLI) | payer OTHER ==
--- NOTE | 2017-09-22 16:29 | DIAGNOSTIC IMAGING REPORT ---
SOFT TISS HEAD/NECK-THYROID HISTORY: Nodule L NECK MASS COMPARISON: None. FINDINGS: Ultrasound evaluation of the neck is performed at the site of clinically palpable nodularity. At this site there are several very small lymph nodes. Largest measures 7 x 3 mm. No evidence for dominant mass or significant adenopathy. IMPRESSION: Several small lymph nodes left soft tissue neck. These measure 7 x 3 mm at maximum. The above report was generated using voice recognition software. It may contain grammatical, syntax or spelling errors. Electronically signed by: Renaldo Lr M.D. 09/22/2017 4:28 PM Dictated Date/Time: 09/22/2017 4:27 PM
== END | disposition home or self-care (01) ==
LOC: C.ULTR 15:41
PROVIDERS: ATTEND Dentist Oral and Maxillofacial Pathology
DX: R22.1 Localized swelling, mass and lump, neck (principal)